=== PATIENT | male | born 1940 | race Caucasian/White ===

== ENCOUNTER 2017-03-19 21:05 | Inpatient (IN) | payer MEDICARE, OTHER ==
[2017-03-19 22:19] LABS: #Lymphocytes 0.4 thou/uL (1.20-3.40); #Monocytes 0.8 thou/uL (0.11-0.59); #Neutrophils 10.5 thou/uL (1.40-6.50); %Eosinophils 0.4 % (0.0-10.0); %Monocytes 6.7 % (0.0-10.0); Hematocrit 41.1 % (42.0-52.0); Mean Platelet Volume 6.6 fL (7.4-10.4); Red Blood Cell (RBC) Count 4.69 mill/uL (4.70-6.10); White Blood Cell (WBC) Count 11.7 thou/uL (4.8-10.8)
[2017-03-19 22:26] LABS: PTT 32.4 SEC (22.9-36.1); Prothrombin Time 15.2 SEC (12.0-14.7)
[2017-03-19 22:35] LABS: ALT (SGPT) 218 U/L (8-55); AST (SGOT) 165 U/L (5-34); Alkaline Phosphatase 238 U/L (40-150); Anion Gap 11 mmol/L (10-20); BUN (Urea Nitrogen) 11 mg/dL (8.4-25.7); Bilirubin, Total 5.2 mg/dL (0.2-1.2); Calc. Creatinine Clearance 0 mL/min (70-130); Carbon Dioxide 26 mmol/L (23-31); Chloride 105 mmol/L (98-107); Estimated GFR-MDRD 73; Globulin 2.7 g/dL (2.4-3.5); Lipase 13 U/L (8-78); Protein, Total 6.2 g/dL (5.8-8.1)
--- NOTE | 2017-03-19 23:14 | ULT ---
RIGHT UPPER QUADRANT ULTRASOUND: History: 76-year-old male with right upper quadrant pain, elevated LFTs. Evidence for pancreatitis. FINDINGS: The gallbladder is contracted and has a very heterogeneous thickened irregular gallbladder wall. Poss ibilities include that of some severe chronic cholecystitis versus the possibility of neoplastic saravia ge. Common bile duct is 0.7 cm. There is some heterogeneous densities which appear to be along the wa ll of the gallbladder or within the gallbladder without definitive shadowing representing some polyp changes, soft tissue mass, or nonshadowing nonmobile gallstones. Pancreas is mostly obscured. The rig ht kidney appears unremarkable. IMPRESSION: Abnormal gallbladder with very markedly thickened irregular nodular gallbladder wall with possible no nshadowing gallstones versus some polypoid changes resulting in a very irregular nodular gallbladder lumen which is mostly contracted. Chronic cholecystitis versus gallbladder neoplastic change are cons iderations. 0.7 cm diameter common bile duct. POS: TIFFANIE
[2017-03-20] MEDS ORDERED: Lorazepam 2 MG/ML VIAL ONE (01:43)
[2017-03-20 02:13] LABS: Bilirubin Large (Negative); Blood, Urine Negative (Negative); Glucose, Urine (Dipstick) Negative (Negative); Ketone, Urine Negative (Negative); Nitrite Negative (Negative); Protein, Urine (Dipstick) Trace mg/dL (Neg-Trace)
[2017-03-20] MEDS: Piperacillin/Tazobactam 3.375 GM in Sodium Chloride 0.9% 100 ML IVPB SCH ×2 (03:15→04:20)
[2017-03-20] MEDS ORDERED: HYDROcodone/Acetaminophen 5/325 mg Tablet PO PRN ×2 (04:43)
[2017-03-20] MEDS ORDERED: Ondansetron HCl/PF 4 MG/2 ML Vial IVP PRN ×3 (04:43→16:32)
[2017-03-20] MEDS ORDERED: Ondansetron ODT 4 MG TAB SL PRN (04:43)
[2017-03-20] MEDS ORDERED: Lorazepam 2 MG/ML VIAL SLOW IVP PRN ×2 (04:43→06:30)
[2017-03-20] MEDS ORDERED: Acetaminophen 325 MG TAB PO PRN (04:43)
[2017-03-20] MEDS ORDERED: Multivitamins, Adult 10 ML, Thiamine HCl 100 MG, Folic Acid 1 MG in Dextrose 5 %-0.45 %... IV SCH ×4 (04:45)
[2017-03-20 05:27] VITALS: BMI 26.0
[2017-03-20] MEDS: THIAMINE HCL IV SCH ×4 (06:03)
[2017-03-20] MEDS: FOLIC ACID IV SCH ×4 (06:03)
[2017-03-20] MEDS: [UNRECOGNIZED DRUG - OTHER] IV SCH ×4 (06:03)
[2017-03-20] MEDS: MULTIVITAMINS IV SCH ×4 (06:03)
--- NOTE | 2017-03-20 06:40 | PDOC.EVN ---
Event Note - Event Note Event Note: [id number] h&p dictated 1. chronic cholecystitis 2. abdominal pain 3. HTN PLAN: SEE ORDERS
[2017-03-20] MEDS ORDERED: Ampicillin/Sulbactam 3 GM in Sodium Chloride 0.9% 100 ML IVPB SCH (09:00)
[2017-03-20] MEDS ORDERED: FLU VACC TS2017-18 (>65YR) 0.5 ML SYRINGE IM ONE (09:00)
[2017-03-20] MEDS ORDERED: Ondansetron HCl/PF 4 MG/2 ML Vial ONE (09:54)
[2017-03-20] MEDS ORDERED: Ketorolac Tromethamine 30 MG/ML VIAL ONE (09:54)
[2017-03-20] MEDS ORDERED: Propofol 200 MG/20 ML VIAL ONE (09:54)
[2017-03-20] MEDS ORDERED: Succinylcholine Chloride 20 MG/ML 10 ml SYRINGE FS ONE (09:54)
[2017-03-20] MEDS ORDERED: Lidocaine 1% PF 5 ML VIAL ONE (09:54)
[2017-03-20] MEDS: Ampicillin/Sulbactam 3 GM, Syringe 1.6 ML in Sterile Water 6.4 ML SLOW IVP SCH ×3 (09:57→21:58)
[2017-03-20] MEDS ORDERED: Midazolam HCl 2 mg/2 ml Vial ONE (10:52)
[2017-03-20] MEDS ORDERED: Fentanyl 100 MCG/2 ML VIAL ONE ×3 (10:52→15:59)
--- NOTE | 2017-03-20 11:28 | CON ---
DATE OF CONSULTATION: 03/20/2017 REQUESTING PHYSICIAN: Dr. Olivas. HISTORY OF PRESENT ILLNESS: This is a 76-year-old man who presented to [facility] in [facility] with insidious onset epigastric abdominal pain which started approximately 1800 hours foll owing a dinner consisting of baked potato, butter and cheese. Pain was associated with nausea, but n o emesis. The patient denies any fevers or chills. The pain did not radiate to his back. Workup there included a CT scan of the abdomen and pelvis which revealed an irregularly shaped thick walled gallbladder suspicious for neoplasm. The patient was transferred to [facility] in [place], [place]. He has been seen by Gastroenterology. Ultrasound of the abdomen was obtained which again con firms an irregularly shaped gallbladder with significant gallbladder wall thickening as well as non-s hadowing intraluminal structures, suspicious for stones versus polypoid lesions. At the time of my evaluation, the patient is awake and alert. His pain is controlled with analgesics . He denies any unexplained weight loss. He reports some fatigue over the last 1 year, but denies a ny early satiety or anorexia. PAST MEDICAL HISTORY: Pertinent for benign prostatic hypertrophy and coronary arterial disease. SURGICAL HISTORY: Pertinent for coronary arterial bypass 15 years ago. He has an inflatable penile prosthesis 1 year ago, this was revised on 09/2016. He specifically denies any previous abdominal lozano rgeries. SOCIAL HISTORY: He is a retired rancher. He denies any cigarette smoking, but admits to drinking 4- 5 beers per day and has done so for many years now. Over the last 6 months; however, the patient rep orts drinking much less. FAMILY HISTORY: Noncontributory for this patient's age. ALLERGIES: Patient denies any known drug allergies. REVIEW OF SYSTEMS: Ten point review of systems essentially unremarkable except for as stated in past medical history and chief complaint. PHYSICAL EXAMINATION: GENERAL: This reveals a 76-year-old normally developed man who is otherwise coherent and interactive and appears stated age. The patient is alert and oriented x3, appears to be in no significant acute distress at the time of my evaluation. VITAL SIGNS: Today includes blood pressure 125/70, pulse 75, respirations 16, temperature is 97.8 de grees Fahrenheit. Oxygen saturation is 94% on room air. HEENT: Reveals normocephalic and atraumatic. Pupils equal, round, and reactive to light and accommo dation. The patient has no scleral icterus present. HEART: Reveals regular rate and rhythm, no murmurs or gallops auscultated. LUNGS: Clear to auscultation bilaterally. His breathing is regular and unlabored. ABDOMEN: Soft with moderate epigastric tenderness to palpation. Liver and spleen are nonpalpable be low costal margins. EXTREMITIES: Reveals 2+ radial and pedal pulses bilaterally. No ankle edema is present. NEUROLOGIC: Reveals no focal deficits present. PERTINENT LABORATORY DATA: Today includes CBC with 11,700 white blood cells, hemoglobin 13.2, hemato crit is 41.1, platelet count is 175,000. Metabolic profile: Sodium 138, potassium is 4.0, chloride is 105, bicarbonate 26, BUN 11, creatinine is 0.99, glucose 120, total bilirubin is 5.2, AST and ALT elevated at 165 and 218 respectively. Alkaline phosphatase is also elevated at 238. Serum lipase is normal at 13. I have personally reviewed a CT scan of abdomen and pelvis which was o btained in [place] prior to this transfer, which reveals a contracted gallbladder with a markedl y gallbladder wall thickening with significant anatomic irregularity. I have also reviewed the abdom inal ultrasound which was obtained yesterday. This shows an abnormal irregularly shaped gallbladder with significant gallbladder wall thickening. There also some non-shadowing intraluminal densities w hich is suspicious for gallstones versus polyps. The common bile duct diameter is normal for this pa tient's age at 7 mm. IMPRESSION: 1. Epigastric abdominal pain, likely secondary to chronic cholecystitis with cholelithiasis versus g allbladder neoplasm. 2. History of coronary arterial disease. RECOMMENDATIONS: 1. A preoperative ERCP to better define the anatomy of the common bile duct and rule out common bile ductal obstruction given the abnormal liver function tests. 2. Laparoscopic cholecystectomy, possible open. Above findings and plan has been discussed with the patient who indicates understanding of the inform ation given. I have also advised the patient of the risks and benefits of the proposed surgery. The risks include, but not limited to bleeding, infection, injury to bile duct or surrounding structures . The patient indicates understanding of this information. I answered his questions. The patient h as given consent for this surgical intervention. Thank you again, Dr. Olivas for allowing me the opportunity to participate in the care of this pat ient.
--- NOTE | 2017-03-20 11:32 | HP ---
DATE OF ADMISSION: 03/20/2017 CHIEF COMPLAINT: Abdominal pain. HISTORY OF PRESENT ILLNESS: The patient is a 76 years old male with past medical history of hypertension, hyperlipidemia, coronary artery disease, initially went to the outside ER for epigastric pain. Patient complained of abdominal pain for the last 2 days. Pain persisted. So, he went to the outside ER. The patient had a CT abdomen done in the outside ER, so patient was transferred here. Upon ER arrival, the patient was initially oriented, but later on patient was confused, so patient was given Ativan and admitted to the floor. Patient is currently lethargic, because of Ativan, but denies any complaints at this time. PAST MEDICAL HISTORY: As per HPI. PAST SURGICAL HISTORY: CABG. Penile prosthesis. FAMILY HISTORY: Positive for lung CA. MEDICATIONS: Unavailable, as the patient is currently confused. SOCIAL HISTORY: Unavailable, but positive per chart or drinks alcohol every day , 4-5 beers. No drugs. REVIEW OF SYSTEMS: Unavailable from the patient, as the patient is currently lethargic. PHYSICAL EXAMINATION: CONSTITUTIONAL/VITAL SIGNS: At the time of H and P performed, temperature is 97.8, heart rate 75, respirations 16, blood pressure is 100/70, pulse ox 94%. GENERAL APPEARANCE: The patient is lethargic, but arousable. HEENT: Anterior nares patent. Nose normal. Oral cavity, tongue is moist. NECK: Supple, no JVD. CARDIOVASCULAR SYSTEM: S1, S2 present. No murmurs, no rubs, no gallops. RESPIRATORY SYSTEM: Diminished breath sounds bilaterally. No wheezing, no rhonchi. Breath sounds bilaterally. GASTROINTESTINAL: Abdomen is soft, no guarding, no organomegaly, no masses felt. MUSCULOSKELETAL: No edema. CRANIAL NERVE SYSTEM: Sleeping, but arousable, follows some commands. Speech clear. PSYCHIATRIC: Mood calm at this time. INTEGUMENTARY: No obvious rashes seen. LABORATORY DATA: At the time of H and P performed, white count 11.7, hemoglobin 13.2, platelet count is 175. PT 15.2, INR 1.2. BMP showed sodium 138, potassium 4, chloride 105, CO2 of 26, creatinine 0.99. AST 165, ALT 218, alkaline phosphatase 238, albumin is 3.5. IMAGING: CT abdomen and pelvis done in the outside showed chronic cholecystitis and gallbladder wall thickening, irregularity seen. ASSESSMENT AND PLAN: The patient is 76 years old male. 1. Chronic cholecystitis plus abdominal pain. Plan to consult General Surgery and Gastroenterology to evaluate the patient. Might need ERCP or MRCP also to evaluate the gallbladder wall. We will wait for their input. 2. Alcohol abuse. Plan to start patient on banana bag and thiamine and folic acid and p.r.n. Ativan. Monitor the patient closely. 3. History of hypertension. Continue home blood pressure medications. We will do p.r.n. hydralazine. 4. History of coronary artery disease. Hold aspirin at this time for possible biopsy. 5. History of hyperlipidemia. Continue home medications. The case was discussed in detail with the patient and also nurse. AKILA
[2017-03-20] MEDS ORDERED: Bupivacaine/Epinephrine 0.25% 30 ML VIAL ONE (13:50)
[2017-03-20] MEDS ORDERED: Iothalamate Meglumine 60% 50 ML VIAL FS ONE (13:51)
--- NOTE | 2017-03-20 14:24 | CON ---
DATE OF CONSULTATION: 03/20/2017 REFERRING DOCTOR: Dr. Derrick Pena, [facility] Hospitalist [facility]. REASON FOR CONSULTATION: Abdominal pain, abnormal sonogram and also abnormal liver function tests. HISTORY OF PRESENT ILLNESS: Mr. Steve Kolb is a very pleasant 76-year-old male hospitaliz ed because of abdominal pain and abnormal CAT scan of abdomen. The patient at present appears very c omfortable. He denies any abdominal pain. He says he had severe pain yesterday, but today he is act ually feeling better. He has no nausea today. He had a history of fever and chills yesterday, but n ow he is afebrile. The patient does see Dr. Anjel Rivas, his primary care doctor. He also sees Dr Kostas Snell, his assembly operator. The patient had no prior GI symptoms until about 2 days ago. The p ain started 2 days ago and the pain was over the epigastric area and periumbilical area. The pain wa s mild to begin with, but gotten severe yesterday and he has an episode of trench fever and chills. He also had an episode of diarrhea yesterday. The patient went to [place] [facility] and had abdominal CAT scan. The CAT scan done shows thickening of the gallbladder and possibly gallbladder mass and so me stones in the gallbladder. He came to the ER and had an abdominal sonogram, the caliber of sonogr am shows CBD at 7 mm, which is the upper limits of normal and does show the same findings that the CA T scan showed including thickening of the gallbladder wall and association of gallbladder mass. The patient has no prior history of abdominal pain. The patient has no prior history of liver disease. At the present time, liver function tests are elevated including bilirubin level. The patient had se en Dr. Hernandez, I believe 7-8 years ago, and had a colonoscopy done at that time. For some reason, he w as advised to have surgery on the colon. The patient did not have surgery and has seen an acupunctur ist. After explaining therapies, GI symptoms. He has not seen Dr. Hernandez over the last 7-8 years. Hi s bowel movements are regular. There is no hematochezia or any melena. He does complain of some ind igestion and heartburn off and on recently. No other relevant history. ALLERGIES: None. SOCIAL HISTORY: The patient does not smoke. He drinks alcohol 4-5 beers and mixed drinks at least 3 -4 times a week. MEDICAL ILLNESSES: 1. Coronary artery disease, status post coronary bypass graft. 2. Hyperlipidemia. No other relevant history. SURGERIES: 1. Status post coronary artery bypass graft. 2. Skin cancer removed and laminectomy over the neck. He also had skin cancer removed over the nose recently about a month ago and he has a bandage over the nose. FAMILY HISTORY: Mother and sister had lung cancer and both were heavy smokers. MEDICATIONS: Include, 1. Atorvastatin 10 mg once a day. 2. Terazosin 5 mg once a day. 3. Omeprazole 40 once a day. 4. Aspirin 40 once a day. REVIEW OF SYSTEMS: Ten point systems review, CONSTITUTIONAL: No history of any weight loss. He has good appetite. He was functioning normally. He has had no loss of weight. COAGULATOR: No history of TIA, no chronic headache, no syncope, no seizure disorder. RESPIRATORY: No history of chronic cough, hemoptysis, or dyspnea. CARDIOVASCULAR: No chest pain, no palpitation, no exertional dyspnea, orthopnea or PND. GASTROINTESTINAL: As in history of present illness. GENITOURINARY: History of nocturia and also frequent urination. MUSCULOSKELETAL: Unremarkable. ENDOCRINE: Unremarkable. NEUROPSYCHIATRIC: No depression or anxiety. PHYSICAL EXAMINATION: GENERAL: He appears very comfortable. He is a very pleasant elderly male, in no distress. HEENT: Conjunctivae are icteric. VITAL SIGNS: He is afebrile, temperature 97.8 degrees Fahrenheit, pulse is 75, blood pressure is 120 /70. NECK: Supple. No adenitis or thyromegaly noted. CARDIOVASCULAR: First and second heart sounds normal. LUNGS: Clear to auscultation. ABDOMEN: Soft and nondistended. Abdomen is really nontender over the right upper quadrant; however, slightly tender over the epigastric area and periumbilical area. Overall, the exam is very benign. There is no organomegaly or masses. Bowel sounds are normal. EXTREMITIES: Reveal no edema. CENTRAL NERVOUS SYSTEM: Grossly within normal limits. LABORATORY AND X-RAY FINDINGS: CBC shows WBC 11,700, hemoglobin 13.2, hematocrit 41.1, MCV 87.7, jeronimo telet count of 175,000, polymorphs 89, lymphocytes 3. His chemistry profile is abnormal with a bilir ubin of 5.2, AST 165, ALT 218, alkaline phosphatase 232. Serum electrolytes are normal. His BUN is 11, creatinine 0.99, albumin 3.5. His abdominal CAT scan shows thickening of gallbladder, possibly g allbladder mass and gallstones. The sonogram shows again the same findings and the CBD is actually n ormal caliber at 7 mm. CLINICAL IMPRESSION: Abdominal pain of recent onset with abnormal CAT scan findings. The patient fields s no prior history of liver disease. He is on atorvastatin, which could also account for some other . However, based on the history and physical, I believe he has biliary tract disease to account for the elevated LFTs. At the present time, the abdominal exam is very benign. RECOMMENDATIONS: 1. Analgesics as needed. 2. Surgical input for possible cholecystitis. If the patient has any bile duct abnormally cholangio gram, may consider ERCP. I will await surgical input before advising further course of therapy.
[2017-03-20] MEDS ORDERED: Promethazine HCl 25 MG/ML VIAL SLOW IVP PRN ×2 (16:11→16:32)
[2017-03-20] MEDS ORDERED: HYDROmorphone 2 MG/ML VIAL SLOW IVP PRN (16:11)
[2017-03-20] MEDS ORDERED: Promethazine HCl 25 MG/ML VIAL IM PRN ×2 (16:11→16:32)
[2017-03-20] MEDS ORDERED: traMADol HCl 50 MG TAB PO PRN ×2 (16:22)
[2017-03-20] MEDS ORDERED: Meperidine HCl/PF 25 MG/ML VIAL ONE (16:31)
[2017-03-20] MEDS ORDERED: Meperidine HCl/PF 25 MG/ML VIAL SLOW IVP PRN (16:32)
--- NOTE | 2017-03-20 16:49 | PDOC.PN ---
- Subjective Encounter Start Date: 03/20/17 Encounter Start Time: 16:47 Subjective: sedated , post op - Objective MAR Reviewed: Yes Vital Signs & Weight: Vital Signs (12 hours) Temp Pulse Resp BP Pulse Ox 03/20/17 08:00 98.0 F 75 20 142/79 H 93 L Weight Weight 192 lb Result Diagrams: 03/19/17 22:03 03/19/17 22:02 Phys Exam - Physical Examination Neck: no JVD Respiratory: clear to auscultation bilateral Cardiovascular: RRR, no significant murmur Gastrointestinal: soft, positive bowel sounds Musculoskeletal: no edema Dx/Plan (1) Cholecystitis Code(s): K81.9 - CHOLECYSTITIS, UNSPECIFIED Status: Acute (2) CAD (coronary artery disease) Code(s): I25.10 - ATHSCL HEART DISEASE OF [place] CORONARY ARTERY W/O ANG PCTRS Status: Acute Qualifiers: Coronary Disease-Associated Artery/Lesion type: [place] artery [place] vs. transplanted heart: [place] heart Associated angina: without angina Qualified Code(s): I25.10 - Atherosclerotic heart disease of [place] coronary artery without angina pectoris (3) HTN (hypertension) Code(s): I10 - ESSENTIAL (PRIMARY) HYPERTENSION Status: Chronic Qualifiers: Hypertension type: essential hypertension Qualified Code(s): I10 - Essential (primary) hypertension (4) Dyslipidemia Code(s): E78.5 - HYPERLIPIDEMIA, UNSPECIFIED Status: Acute (5) ETOH abuse Code(s): F10.10 - ALCOHOL ABUSE, UNCOMPLICATED Status: Acute - Plan post op cachorro, will need ERCP -: banana bag daily -: selected home meds * .
--- NOTE | 2017-03-20 19:51 | OP ---
DATE OF OPERATION: 03/20/2017 PREOPERATIVE DIAGNOSIS: Chronic cholelithiasis versus gallbladder neoplasm. POSTOPERATIVE DIAGNOSIS: Acute and chronic cholecystitis with cholelithiasis. SURGERY PERFORMED: Attempted laparoscopic cholecystectomy converted to open cholecystectomy. Pathology with frozen sect ion. SURGEON: Chase Lofton D.O. ANESTHESIA: General endotracheal. ESTIMATED BLOOD LOSS: 200 mL. FLUIDS GIVEN: 1100 mL crystalloids. SPONGE AND INSTRUMENT COUNT: Certified as correct x2. COMPLICATIONS: None apparent at time of operation. INDICATIONS FOR OPERATION: A 76-year-old man presented with epigastric to right upper quadrant abdom inal pain. Clinical and radiographic examination was consistent with chronic cholecystitis with chol elithiasis and abnormal gallbladder suspicious for gallbladder neoplasm. Patient was brought to the operating room for laparoscopic cholecystectomy. Findings are consistent with a necrotic markedly th ick walled gallbladder in the usual anatomic location completely encased by omental adhesions. Froze n section is negative for neoplastic process. DESCRIPTION OF OPERATION: Informed consent obtained from the patient who was brought to the operatin g room and placed in supine position. Following general anesthesia, Alcantar catheter was inserted and placed a bedside drain. Abdomen is sterilely prepped and draped in the usual fashion. The skin belo w the umbilicus was infiltrated with 0.25% Marcaine with epinephrine. A small curvilinear infraumbil ical incision was made using an 11 scalpel. Umbilical stalk was grasped with Dejah and elevated. V eress needle was inserted through the incision and placed in the peritoneal cavity through which the abdomen was insufflated with 3 L of CO2 gas. Intra-abdominal pressure noted at 1 mmHg. Following ab dominal insufflation, Veress needle was removed and a 5 mm trocar introduced using a Visiport under l aparoscopy. Laparoscopy confirmed proper placement of the port, no injuries to underlying structures . Additional laparoscopy reveals gallbladder in the usual anatomic location completely encased by om ental adhesions. Under direct laparoscopy, a 12 mm epigastric and two 5 mm right lateral subcostal p orts were placed after the overlying skin was infiltrated with 0.25% Marcaine with epinephrine and ap propriate incisions made. The patient is placed in the reverse Trendelenburg position, rotated to hi s left. I introduced the [place] dissector with cautery, using this to take down omental adhesions to reveal the fundus of the gallbladder. I then introduced a Innovisige grasper through the right late ral subcostal port, attempted to grasp the fundus of the gallbladder which readily fell apart. A lar ge amount of purulent pus was evacuated from contracted gallbladder. Additional attempt was made to take down omental adhesions from the remainder of the gallbladder. This was quite tedious as there w as a significant amount of inflammation and fibrosis involving this markedly thick walled contracted gallbladder. Decision was made therefore to comfort as to open given previous suspicion of a neoplas tic process. At this juncture, the abdomen was desufflated. Ports were removed. Dejah incision wa s performed involving the right subcostal incisional port sites. This was achieved using a 10 scalpe l. Fascia was scored along the line of the incision using cautery. Muscles were divided in layers. The peritoneal cavity was then entered. Bookwalter retractor was put in place to gain exposure. Th e gallbladder was taken down in a retrograde fashion using cautery in a piecemeal fashion as attempts to grasp it with ring forcep was unachievable given the extensive necrosis of this thick walled gall bladder. We were unable to identify the cystic duct following underlying fiberoptic encased common b ile duct. To avoid injury to the common bile duct once the gallbladder was removed from the gallblad grady fossa. Further dissection was terminated. Note that the tissues from the gallbladder was sent f or frozen section and this was reported by pathology as acute inflammatory process, no evidence of ne oplasm. Gallbladder fossa was then inspected for hemostasis. Minor venous ooze was readily controll ed using a 1 x 2-inch piece of fibula. Given the report of a neoplastic process, a #19 Marcos drain w as introduced into the gallbladder fossa in the subhepatic space and allowed to exit the abdominal ca vity through a separate stab incision. The drain was secured to intraabdominal wall using 2-0 silk s uture. Fascia of the epigastric port site was closed using 0 Vicryl suture. Peritoneum was approxim ated along the line of the Dejah incision using a running stitch of 2-0 Vicryl. Fascia was then will sed in layers using a running stitch of #1 single stranded PDS. Subcutaneous tissue was irrigated wi th saline. Good hemostasis was noted in place. Skin incision was closed using elizabeth. The epigast koko and infraumbilical incision were closed using 4-0 Monocryl suture in subcuticular fashion. [place] harrell was applied there. Sterile dressing was applied over the Dejah incision. The patient tolerate d the operation without any apparent complication and was returned to recovery room in satisfactory c ondition.
[2017-03-20] MEDS: Sodium Chloride 0.9% 1,000 ML IV SCH ×2 (21:57)
[2017-03-20] MEDS: Acetaminophen 500 MG TAB PO SCH (21:59)
[2017-03-20] MEDS: Ketorolac Tromethamine 30 MG/ML VIAL IVP SCH (21:59)
[2017-03-20] MEDS: Tamsulosin HCl 0.4 MG CAP PO SCH (22:00)
[2017-03-21] MEDS: Ketorolac Tromethamine 30 MG/ML VIAL IVP SCH ×5 (00:47→22:42)
[2017-03-21] MEDS: Acetaminophen 500 MG TAB PO SCH ×5 (00:47→22:42)
[2017-03-21] MEDS: Ampicillin/Sulbactam 3 GM, Syringe 1.6 ML in Sterile Water 6.4 ML SLOW IVP SCH ×4 (03:44→22:44)
[2017-03-21] MEDS: MULTIVITAMINS IV SCH ×4 (06:16)
[2017-03-21] MEDS: FOLIC ACID IV SCH ×4 (06:16)
[2017-03-21] MEDS: [UNRECOGNIZED DRUG - OTHER] IV SCH ×4 (06:16)
[2017-03-21] MEDS: THIAMINE HCL IV SCH ×4 (06:16)
[2017-03-21 06:35] LABS: Band 6 % (5-11); Hematocrit 34.7 % (42.0-52.0); Mean Platelet Volume 7.4 fL (7.4-10.4); Neutrophil 79 % (42-75); Red Blood Cell (RBC) Count 3.96 mill/uL (4.70-6.10); White Blood Cell (WBC) Count 7.8 thou/uL (4.8-10.8)
[2017-03-21 06:37] LABS: ALT (SGPT) 103 U/L (8-55); AST (SGOT) 73 U/L (5-34); Alkaline Phosphatase 175 U/L (40-150); Anion Gap 9 mmol/L (10-20); BUN (Urea Nitrogen) 21 mg/dL (8.4-25.7); Bilirubin, Direct 3.3 mg/dL (0.1-0.3); Bilirubin, Total 4.3 mg/dL (0.2-1.2); Calc. Creatinine Clearance 64 mL/min (70-130); Calcium 8.2 mg/dL (7.8-10.44); Carbon Dioxide 26 mmol/L (23-31); Chloride 107 mmol/L (98-107); Estimated GFR-MDRD 60; Magnesium 1.7 mg/dL (1.6-2.6); Phosphorus 2.6 mg/dL (2.3-4.7); Protein, Total 4.8 g/dL (5.8-8.1)
--- NOTE | 2017-03-21 10:09 | PDOC.PN ---
- Subjective Encounter Start Date: 03/21/17 Encounter Start Time: 10:07 Subjective: mild incisional pain with motion - Objective MAR Reviewed: Yes Vital Signs & Weight: Vital Signs (12 hours) Temp Pulse Resp BP Pulse Ox 03/21/17 08:00 98.5 F 67 16 115/64 94 L 03/21/17 04:00 98.2 F 74 15 112/67 94 L 03/21/17 00:15 98.3 F 84 18 106/70 96 Weight Weight 192 lb I&O: 03/20/17 03/21/17 03/22/17 06:59 06:59 06:59 Output Total 190 Balance -190 Result Diagrams: 03/21/17 04:41 03/21/17 04:41 Phys Exam - Physical Examination Constitutional: NAD Neck: no JVD Respiratory: clear to auscultation bilateral Cardiovascular: RRR, no significant murmur Gastrointestinal: soft, non-tender, positive bowel sounds Musculoskeletal: no edema Dx/Plan (1) Cholecystitis Code(s): K81.9 - CHOLECYSTITIS, UNSPECIFIED Status: Acute (2) CAD (coronary artery disease) Code(s): I25.10 - ATHSCL HEART DISEASE OF [place] CORONARY ARTERY W/O ANG PCTRS Status: Acute Qualifiers: Coronary Disease-Associated Artery/Lesion type: [place] artery [place] vs. transplanted heart: [place] heart Associated angina: without angina Qualified Code(s): I25.10 - Atherosclerotic heart disease of [place] coronary artery without angina pectoris (3) HTN (hypertension) Code(s): I10 - ESSENTIAL (PRIMARY) HYPERTENSION Status: Chronic Qualifiers: Hypertension type: essential hypertension Qualified Code(s): I10 - Essential (primary) hypertension (4) Dyslipidemia Code(s): E78.5 - HYPERLIPIDEMIA, UNSPECIFIED Status: Acute (5) ETOH abuse Code(s): F10.10 - ALCOHOL ABUSE, UNCOMPLICATED Status: Acute - Plan doing well post op, LFTs still high but declining -: start home meds-lisinopril, lipitor, terrazosyn * .
[2017-03-21] MEDS: Sodium Chloride 0.9% 1,000 ML IV SCH ×2 (10:53→22:44)
--- NOTE | 2017-03-21 11:31 | PRG ---
DATE OF SERVICE: 03/21/2017 SUBJECTIVE: Mr. Kolb is awake and alert today. He is postoperative day #1, status post open cholecy stectomy. The patient reports adequate pain control. He denies any nausea or vomiting. He tolerate d his clear liquid diet. OBJECTIVE: VITAL SIGNS: Today includes blood pressure 115/64, pulse is 67, respiratory rate 16, temperature is 98.5 degrees Fahrenheit, oxygen saturation is 94% on room air. HEENT: Reveals normocephalic and atraumatic appearance. Pupils equal, round, and reactive to light and accommodation. HEART: Reveals regular rate and rhythm, no murmurs or gallops auscultated. CHEST: Clear to auscultation bilaterally. Breathing is regular and unlabored. ABDOMEN: Soft and nondistended. Incisions remain intact and clean. The patient has moderate incisi onal tenderness to palpation, no gross rebound tenderness present. Pedro-Morton drain returned some moderate amount of serosanguineous fluid, nonbilious. NEUROLOGIC: Reveals no focal deficits present. LABORATORY DATA: Includes CBC with 7800 white blood cells, hemoglobin 11.1, hematocrit is 34.7, plat elet count is 119,000. Metabolic profile: Sodium 138, potassium is 3.7, chloride is 107, bicarbonate 26, BUN 21, creatinine is 1.17, glucose 97, phosphorus is 2.6, magnesium is 1.7, AST and ALT are decreasing at 73 and 103 r espectively. Serum alkaline phosphatase is also decreasing at 175. The total bilirubin is decreasing at 4.3 in contrast to 5.2 yesterday. IMPRESSION: Postoperative day #1, status post open cholecystectomy. PLAN: 1. Increase activity. 2. Continue clear liquid diet until return of bowel function. Both findings and plan discussed with the patient who indicates understanding of the information give n. I did also discuss with Gastroenterology who will continue to monitor the patient for resumption of the LFTs and consider ERCP if indicated.
--- NOTE | 2017-03-21 11:49 | PRG ---
DATE OF SERVICE: 03/21/2017 GI INPATIENT DAILY PROGRESS NOTE SUBJECTIVE: Mr. Kolb says he is feeling really well today. Abdominal discomfort is minimal, much improved from yesterday. He has been afebrile. LFTs have trended down a bit since cholecystectomy yesterday. He is tolerating his liquid diet. OBJECTIVE: VITAL SIGNS: Temperature 98.5, pulse 67, blood pressure 115/64, 94% oxygen saturation on 2 liters nasal cannula. GENERAL: No acute distress, sitting up on the edge of the bed comfortably. HEART: Regular rate and rhythm. LUNGS: Clear to auscultation bilaterally. ABDOMEN: Bowel sounds hypoactive, but present, soft, mild generalized tenderness to palpation. No guarding or rebound tenderness. EXTREMITIES: No peripheral edema. LABORATORY STUDIES: WBC 7.8, hemoglobin 11.1, platelets 119. Sodium 138, potassium 3.7, BUN 21, creatinine 1.17, total bilirubin 4.3 down from 5.2 yesterday. Direct bilirubin is 3.3. AST is 73 down from 165 yesterday. ALT is 103 down from 218 yesterday. Alkaline phosphatase is 175 down from 238 yesterday, lipase on admission was 13. ASSESSMENT AND PLAN: 1. Acute cholecystitis, severe, now status post laparoscopic converted to open cholecystectomy yesterday on 03/20/2017. 2. Elevated liver function tests, some improvement since yesterday. I discussed the case with the patient and also with Dr. Lofton. Clinically, the patient is doing quite well and LFTs have declined a bit since surgery yesterday. His common bile duct was borderline in size upon admission. An intraoperative cholangiogram was unable to be performed. At this point, we will plan to trend the LFTs and anticipate continue to decline. If the LFTs bump back up, or if the patient becomes more symptomatic for some reason, then we could plan for ERCP if needed. No plan for ERCP at this time. Please call at any time with questions or concerns. AKILA
[2017-03-21] MEDS: Terazosin HCl 5 MG CAP PO SCH (15:20)
[2017-03-21] MEDS: Atorvastatin Calcium 40 MG TAB PO SCH (22:42)
[2017-03-21] MEDS: Tamsulosin HCl 0.4 MG CAP PO SCH (22:47)
[2017-03-22] MEDS: Ampicillin/Sulbactam 3 GM, Syringe 1.6 ML in Sterile Water 6.4 ML SLOW IVP SCH ×4 (03:30→21:40)
[2017-03-22] MEDS: Ketorolac Tromethamine 30 MG/ML VIAL IVP SCH ×4 (04:02→21:28)
[2017-03-22] MEDS: Acetaminophen 500 MG TAB PO SCH ×4 (04:02→21:27)
[2017-03-22] MEDS: Sodium Chloride 0.9% 1,000 ML IV SCH (04:03)
[2017-03-22 09:28] LABS: ALT (SGPT) 60 U/L (8-55); AST (SGOT) 51 U/L (5-34); Alkaline Phosphatase 147 U/L (40-150); Anion Gap 10 mmol/L (10-20); BUN (Urea Nitrogen) 29 mg/dL (8.4-25.7); Bilirubin, Total 3.6 mg/dL (0.2-1.2); Calc. Creatinine Clearance 61 mL/min (70-130); Carbon Dioxide 25 mmol/L (23-31); Chloride 104 mmol/L (98-107); Estimated GFR-MDRD 57; Protein, Total 4.4 g/dL (5.8-8.1)
[2017-03-22] MEDS: Lisinopril 20 MG TAB PO SCH (09:31)
--- NOTE | 2017-03-22 10:53 | PRG ---
DATE OF SERVICE: 03/22/2017 SUBJECTIVE: Mr. Kolb is a 76-year-old man who is 2 days status post open cholecystectomy. The patient reports adequate pain control. He is tolerating clear liquid diet and having normal urin digna function. Admits to passing flatus, but no bowel movement. OBJECTIVE: VITAL SIGNS: Today includes blood pressure 112/65, pulse is 74, respiratory rate 14, temperature 97. 4 degrees Fahrenheit, oxygen saturation is 93% on room air. HEENT: Reveals normocephalic and atraumatic. HEART: Reveals regular rate and rhythm, no murmurs or gallops auscultated. CHEST: Lungs are clear to auscultation bilaterally. Breathing is regular and unlabored. ABDOMEN: Soft, nondistended with mild incisional tenderness to palpation. He clearly has no gross r ebound tenderness present. Pedro-Morton drain today is producing large amount of bilious output. NEUROLOGIC: Reveals no focal deficits present. LABORATORY DATA: Today includes metabolic profile: Sodium 136, potassium is 3.4, chloride is 104, b icarbonate 25, BUN 29, creatinine is 1.23, glucose is 112. Total bilirubin today is decreasing at 3. 6 in contrast to 4.3 yesterday and 5.2 the day before. AST and ALT are also decreasing at 51 and 60 respectively. IMPRESSION: 1. Postoperative day #2 status post open cholecystectomy. 2. Large output bilious drainage per the Pedro-Morton drain likely secondary to a bile leak. PLAN: Discussed with Gastroenterology. The patient will likely need ERCP with stent if indicated. Above findings and plan discussed with the patient who indicates understanding of the information gibet[place] en. I answered his questions.
--- NOTE | 2017-03-22 11:55 | PDOC.PN ---
- Subjective Encounter Start Date: 03/22/17 Encounter Start Time: 11:53 Subjective: no fever, chills, etc - Objective MAR Reviewed: Yes Vital Signs & Weight: Vital Signs (12 hours) Temp Pulse Resp BP BP Pulse Ox 03/22/17 09:31 112/85 03/22/17 07:26 97.4 F L 74 14 112/65 93 L 03/22/17 04:00 97.9 F 71 16 109/66 96 Weight Weight 192 lb I&O: 03/21/17 03/22/17 03/23/17 06:59 06:59 06:59 Intake Total 3580 Output Total 530 Balance 3050 Result Diagrams: 03/21/17 04:41 03/22/17 08:44 Phys Exam - Physical Examination Neck: no JVD Respiratory: clear to auscultation bilateral Cardiovascular: RRR, no significant murmur Gastrointestinal: soft, no distention, positive bowel sounds Musculoskeletal: no edema Dx/Plan (1) Cholecystitis Code(s): K81.9 - CHOLECYSTITIS, UNSPECIFIED Status: Acute (2) CAD (coronary artery disease) Code(s): I25.10 - ATHSCL HEART DISEASE OF [place] CORONARY ARTERY W/O ANG PCTRS Status: Acute Qualifiers: Coronary Disease-Associated Artery/Lesion type: [place] artery [place] vs. transplanted heart: [place] heart Associated angina: without angina Qualified Code(s): I25.10 - Atherosclerotic heart disease of [place] coronary artery without angina pectoris (3) HTN (hypertension) Code(s): I10 - ESSENTIAL (PRIMARY) HYPERTENSION Status: Chronic Qualifiers: Hypertension type: essential hypertension Qualified Code(s): I10 - Essential (primary) hypertension (4) Dyslipidemia Code(s): E78.5 - HYPERLIPIDEMIA, UNSPECIFIED Status: Acute (5) ETOH abuse Code(s): F10.10 - ALCOHOL ABUSE, UNCOMPLICATED Status: Acute - Plan LFTs coming down slowly, significant drainage in GOPAL drain -: cont lipitor, lisinopril, flomax * .
[2017-03-22] MEDS: Polyethylene Glycol 3350 17 GM Packet PO SCH (13:38)
[2017-03-22] MEDS: Senokot S 8.6-50 MG TAB PO SCH ×2 (13:39→21:27)
[2017-03-22] MEDS ORDERED: Fentanyl 250 MCG/5 ML VIAL ONE (14:17)
[2017-03-22] MEDS ORDERED: Iothalamate Meglumine 60% 50 ML VIAL FS ONE (14:21)
[2017-03-22] MEDS ORDERED: PHENYLEPHRINE-NS 100 MCG/ML 10 ML SYRINGE ONE ×2 (16:02→16:13)
[2017-03-22] MEDS ORDERED: Succinylcholine Chloride 20 MG/ML 10 ml SYRINGE FS ONE (16:13)
[2017-03-22] MEDS ORDERED: ePHEDrine/0.9% NaCl/PF SYRINGE 50 mg/10 ml ONE (16:13)
[2017-03-22] MEDS ORDERED: Lidocaine 1% PF 5 ML VIAL ONE (16:13)
[2017-03-22] MEDS ORDERED: Propofol 200 MG/20 ML VIAL ONE (16:13)
[2017-03-22] MEDS ORDERED: Ondansetron HCl/PF 4 MG/2 ML Vial ONE (16:13)
[2017-03-22] MEDS ORDERED: Dexamethasone 20 MG/5 ML VIAL ONE (16:13)
--- NOTE | 2017-03-22 16:13 | RAD ---
ERCP INTRAOPERATIVE FLUOROSCOPY 03/22/17 HISTORY: Abdominal pain. Cholecystitis. FINDINGS/IMPRESSION: Intraoperative fluoroscopy is provided for ERCP procedure. Two spot fluoroscopic images show endoscop e to overlie the second portion of the duodenum with contrast opacification of a nondilated common du ct. The final image shows an opaque stent over the course of the common duct. POS: SHERI
[2017-03-22] MEDS ORDERED: Ondansetron HCl/PF 4 MG/2 ML Vial IVP PRN (16:20)
[2017-03-22] MEDS ORDERED: Morphine Sulfate 2 MG/ML SYRINGE SLOW IVP PRN (16:20)
[2017-03-22] MEDS ORDERED: Promethazine HCl 25 MG/ML VIAL IM PRN (16:20)
[2017-03-22] MEDS ORDERED: Promethazine HCl 25 MG/ML VIAL SLOW IVP PRN (16:20)
--- NOTE | 2017-03-22 20:00 | OP ---
DATE OF PROCEDURE: 03/22/2017 SURGEON: Edward Barrett M.D. S IRON WORKER SURGEON: None. PROCEDURE: Endoscopic retrograde cholangiopancreatography with biliary sphincterotomy, stone extract ion, and biliary stent placement. INDICATIONS: Suspected bile leak, postoperative day #2 status post laparoscopic converted to open ch olecystectomy. LFTs are declining, but persistently elevated, and GOPAL drain is putting out excessive fluid concerning for possible bile leak. MEDICATIONS: See anesthesia record. FINDINGS: After discussion of the risks, benefits and alternatives of the procedure, informed consen t was obtained and witnessed. Pre-endoscopic cardiopulmonary examination was satisfactory. Timeout was performed before sedation was achieved. Sedation was achieved with anesthesia assistance in the endoscopy unit. The patient was placed in a semi-prone position on the fluoroscopy table under gener al anesthesia, endotracheally intubated. A Pentax adult side-viewing duodenoscope was inserted into the oropharynx and passed beyond the esophagus and stomach and into the second portion of the duodenu m under indirect visualization. The ampulla was brought into view with the endoscope initially in th e long position. There was a large periampullary diverticulum. The ampulla itself appeared normal, but there was no spontaneous flow bile from the ampulla. Using a triple lumen dome-tip sphincterotom e and 0.035 wire, we were able to selectively cannulate the common bile duct. The guidewire was pass ed up into the left hepatic system. At this point, a cholangiogram was performed. This demonstrated a high grade bile leak from what appeared to be the cystic duct stump. Contrast agent was seen to f low freely from the cystic duct into the gallbladder fossa. The common bile duct was not dilated. T he intrahepatic ducts were not dilated. There was no evidence of biliary stricture. I was unable to perceive any filling defect within the common bile duct. At this point, the sphincterotome was with drawn to the level of the ampulla and a generous biliary sphincterotomy was performed. The sphincter otome was exchanged for an 8-12 mm extraction balloon. Multiple sweeps were made at the common bile duct with the balloon fully inflated. In this fashion, we were able to extract one single medium siz ed dark pigmented stone from the common bile duct. The balloon was then withdrawn and we elected to place a biliary stent across the ampulla. A 7 cm [place] dual flanged straight plastic stent was placed successfully into the common bile duct with the distal end and distal flange outside the ampu lla. This was accomplished without difficulty or complication. At this point, the working apparatus was completely withdrawn. The endoscope was completely withdrawn suctioning out excess air and flui d and the procedure was complete. Postprocedure fluoroscopic images demonstrated no retroperitoneal or subdiaphragmatic free air. The patient was then allowed to recover. The patient tolerated the pr ocedure well. There were no immediate post-procedure complications. IMPRESSION: 1. Choledocholithiasis, successful balloon extraction of a single dark pigmented stone from the comm on bile duct. 2. Bile leak from the cystic duct. 3. Successful biliary sphincterotomy, stone extraction, and placement of 7 cm [place] straight d ual flanged plastic stent in the common bile duct across the ampulla. 4. Periampullary diverticulum. RECOMMENDATIONS: 1. Clear liquid diet, then advance as tolerated. 2. Monitor for potential complications including post-ERCP pancreatitis. 3. We will plan to repeat ERCP in 6-8 weeks for stent removal.
[2017-03-22] MEDS: Atorvastatin Calcium 40 MG TAB PO SCH (21:27)
[2017-03-22] MEDS: Terazosin HCl 5 MG CAP PO SCH (21:27)
[2017-03-22] MEDS: Tamsulosin HCl 0.4 MG CAP PO SCH (21:28)
[2017-03-23] MEDS: Acetaminophen 500 MG TAB PO SCH ×2 (03:55→10:37)
[2017-03-23] MEDS: Ampicillin/Sulbactam 3 GM, Syringe 1.6 ML in Sterile Water 6.4 ML SLOW IVP SCH ×2 (03:55→10:37)
[2017-03-23] MEDS: Ketorolac Tromethamine 30 MG/ML VIAL IVP SCH ×2 (03:56→10:37)
[2017-03-23] MEDS: Lisinopril 20 MG TAB PO SCH (08:34)
[2017-03-23] MEDS: Polyethylene Glycol 3350 17 GM Packet PO SCH (08:34)
[2017-03-23] MEDS: Senokot S 8.6-50 MG TAB PO SCH (08:34)
[2017-03-23 09:48] LABS: ALT (SGPT) 52 U/L (8-55); AST (SGOT) 45 U/L (5-34); Alkaline Phosphatase 151 U/L (40-150); Anion Gap 12 mmol/L (10-20); BUN (Urea Nitrogen) 25 mg/dL (8.4-25.7); Bilirubin, Direct 2.2 mg/dL (0.1-0.3); Bilirubin, Total 2.7 mg/dL (0.2-1.2); Calc. Creatinine Clearance 58 mL/min (70-130); Calcium 8.7 mg/dL (7.8-10.44); Carbon Dioxide 27 mmol/L (23-31); Chloride 102 mmol/L (98-107); Estimated GFR-MDRD 53; Magnesium 1.8 mg/dL (1.6-2.6); Phosphorus 3.2 mg/dL (2.3-4.7); Protein, Total 5.4 g/dL (5.8-8.1)
--- NOTE | 2017-03-23 11:01 | PRG ---
DATE OF SERVICE: 03/23/2017 SUBJECTIVE: Mr. Kolb is postoperative day #3 status post open cholecystectomy. He reports adequate pain control. The patient is postoperative day #1 status post ERCP with extraction of common bile du ct stone and biliary stenting. He tolerates diet today, he denies any nausea or vomiting. He denies any fevers or chills. OBJECTIVE: VITAL SIGNS: Includes blood pressure 129/66, pulse 74, respiratory rate 16, maximum temperature in t he last 24 hours 98.4 degrees Fahrenheit, oxygen saturation 94% on room air. HEENT: Reveals pupils equal, round, reactive to light and accommodation. He has no sclerae icterus present. HEART: Reveals regular rate and rhythm, no murmurs or gallops auscultated. CHEST: Clear to auscultation bilaterally. Breathing is regular and unlabored. ABDOMEN: Soft and nondistended. Incisional scar remains intact, clean, and dry. Pedro-Morton aba in returns moderate amount of serous fluid, no bilious drainage present. NEUROLOGIC: Reveals no focal deficits present. LABORATORY DATA: Today includes metabolic profile: Sodium 137, potassium is 3.8, chloride is 102, b icarbonate 27, BUN 25, creatinine is 1.30, glucose 185. Magnesium 1.8, phosphorus 3.2. AST and ALT both decreasing at 45 and 52 respectively. Total bilirubin is also decreasing at 2.7. IMPRESSION: 1. Postoperative day #3 status post open cholecystectomy. 2. Postop day #1 status post endoscopic retrograde cholangiopancreatography with stenting. 3. Note that pathological report is consistent with acute on chronic cholecystitis with cholelithias is, no neoplastic process present. PLAN: The patient has remained hemodynamically stable and will be discharged home today with the shaan corral instructions: 1. He follows up with me in the Surgery Clinic in 1 week for staple removal. 2. The Pedro-Morton drain will be removed today. The patient is given a prescription for tramadol #30 to be taken 1-2 p.o. q.6 hours p.r.n. pain. 3. He may alternate this with Tylenol extra strength 1000 mg p.o. q.6 hours. 4. The patient is to call me with any questions or problems including exacerbation of abdominal pain , intolerance to oral intake or any fever in excess of 101 degrees Fahrenheit. He indicates understanding of information provided. I have answered his questions. The patient has expressed deep gratitude for the care rendered to him during this hospitalization and surgery.
--- NOTE | 2017-03-23 11:41 | DIS ---
DATE OF ADMISSION: 03/20/2017 DATE OF DISCHARGE: 03/23/2017 PRIMARY CARE PROVIDER: [facility] call admission for [facility]. FINAL DIAGNOSES: Cholecystitis, coronary artery disease, dyslipidemia, hypertension. DISCHARGE MEDICATIONS: Tramadol 50 mg 1-2 every 6 hours p.r.n. pain, Lipitor 80 mg a day, lisinopril 20 mg a day, terazosin 5 mg a day. ALLERGIES: No known drug allergies. PENDING AT TIME OF DISCHARGE: Nothing. CODE STATUS: FULL. HOSPITAL COURSE: Patient admitted to [facility] Hospitalist Service through [facility] The patient complained of abdominal pain. CT of the abdomen showed chronic cholecystitis and gallbladder wall thickening. Alkaline phosphatase 238, AST 165, ALT 218. White count was 11.7. Tad irubin was 5.2. Dr. Chase Lofton was consulted. On 03/20/2017, the patient was taken to the operat ing room, diagnosis of acute on chronic cholecystitis with cholelithiasis, attempted laparoscopic cho lecystectomy was changed to open, a drain was left in. The patient has been followed by Zeinab and Dr Kostas Lofton. Dr. Lofton saw him today and recommended discharge. The patient had an ERCP by Dr. Edward Champagne se 03/22/2017 with a successful balloon extraction of single dark pigmented stone from the common tad e duct. The patient is being discharged for followup with Dr. Lofton per his instructions. Prescript ions written by Dr. Lofton. CONSULTATIONS: Dr. Chase Lofton and Dr. Edward Barrett. Procedures, previously mentioned. Followup laboratory, bilirubin, over the last 4 days, has been 5.2 , 4.3, 3.6, 2.7; AST 165, 73, 51, 45; ALT 238, 175, 147, 151. The patient's white cell count came do wn to normal. He is doing well. Vital signs are stable. Abdomen is benign.
[2017-03-23] MEDS ORDERED: Bisacodyl 5 MG TAB PO SCH (12:00)
[2017-03-23 12:34] VITALS: BP 141/76; TEMP 97.9
[2017-03-24] MEDS ORDERED: Bisacodyl 5 MG TAB PO SCH (09:00)
== END 2017-03-23 13:45 | disposition home or self-care (01) | DRG 415 ==
LOC: ERS 21:05 → T4-B 03-20 01:50 → SURG A 03-20 17:28
PROVIDERS: ADMIT Internal Medicine; ATTEND Internal Medicine
PROC: 0FT40ZZ Resection of Gallbladder, Open Approach (ICD-10-PCS; 2017-03-20)
PROC: 0FJ44ZZ Inspection of Gallbladder, Percutaneous Endoscopic Approach (ICD-10-PCS; 2017-03-20)
PROC: 0DNU4ZZ Release Omentum, Percutaneous Endoscopic Approach (ICD-10-PCS; 2017-03-20)
PROC: 0FC98ZZ Extirpation of Matter from Common Bile Duct, Via Natural or Artificial Opening Endoscopic (ICD-10-PCS; principal; 2017-03-22)
PROC: 0F798DZ Dilation of Common Bile Duct with Intraluminal Device, Via Natural or Artificial Opening Endoscopic (ICD-10-PCS; 2017-03-22)
DX: K80.66 Calculus of gallbladder and bile duct with acute and chronic cholecystitis without obstruction (principal); F10.230 Alcohol dependence with withdrawal, uncomplicated; E78.5 Hyperlipidemia, unspecified; I25.10 Atherosclerotic heart disease of native coronary artery without angina pectoris; I10 Essential (primary) hypertension; Z95.1 Presence of aortocoronary bypass graft; I25.2 Old myocardial infarction; Z85.828 Personal history of other malignant neoplasm of skin
CPT/HCPCS: 36415; 74330; 76705; 80048; 80076; 81003; 83690; 83735; 84100; 85007; 85027; 88304; 88331; 88342; 93005; 96361; 96374; A4216; J0295; J1100; J1885; J2001; J2060; J2175; J2250; J2405; J2543; J2704; J3010; J3411; J7042; J7050; Q9961

== ENCOUNTER 2017-05-18 13:17 | Day surgery (SDC) | payer MEDICARE, OTHER ==
[2017-05-17 14:57] VITALS: BMI 25.7
[2017-05-18] MEDS ORDERED: Fentanyl 100 MCG/2 ML VIAL ONE (13:37)
[2017-05-18] MEDS ORDERED: CEFAZOLIN/Water 2 GM/20 ML SYRINGE ONE (13:43)
[2017-05-18] MEDS ORDERED: Iothalamate Meglumine 60% 50 ML VIAL FS ONE (14:16)
--- NOTE | 2017-05-18 15:58 | RAD ---
ERCP: Date: 05/18/17 PROVIDED CLINICAL HISTORY: Abdominal pain. FINDINGS: Comparison made with study dated 03/22/17. The previously seen common duct stent is no longer apparent. The common duct appears somewhat conspic uous in size. There is no evidence for intrahepatic biliary ductal dilatation. There is no evidence f or a biliary filling defect. IMPRESSION: As above. POS: TIFFANIE
--- NOTE | 2017-05-18 16:08 | OP ---
DATE OF PROCEDURE: 05/18/2017 PROCEDURE: Endoscopic retrograde cholangiopancreatography with stent removal. PHYSICIAN: Albaro Hernandez M.D. MEDICATIONS: Given by Anesthesiology Department. PREPROCEDURE DIAGNOSIS: History of bile leak, status post stent placement. POSTOPERATIVE DIAGNOSES: 1. Stent removal. 2. Normal occlusive cholangiogram. PROCEDURE IN DETAIL: Written consent was obtained prior to procedure. After adequate sedation, side -viewing endoscope was advanced down the stomach through the pylorus into duodenum. The previously p laced stent was seen. A snare was then used to remove the stent along with the scope. Repeat endosc opy was performed. Periampullary diverticula noted. Cannulation of the bile duct was made using a 9 mm balloon. Occlusive cholangiogram was then performed and was free of filling defect. There was n o further leak. The catheter and the instrument were then fully removed. The patient tolerated proc edure well. ASSESSMENT: 1. Status post removal of biliary stent. 2. Normal cholangiogram RECOMMENDATIONS: Resume activity and diet after discharge.
[2017-05-18] MEDS ORDERED: PROPOFOL 200 MG/20 ML VIAL ONE (16:50)
[2017-05-18] MEDS ORDERED: Lidocaine 1% PF 5 ML VIAL ONE (16:50)
[2017-05-18] MEDS ORDERED: Glycopyrrolate 0.2 MG/ML 5 ML SYRINGE ONE (16:50)
[2017-05-18] MEDS ORDERED: Dexamethasone 20 MG/5 ML VIAL ONE (16:50)
[2017-05-18] MEDS ORDERED: Ondansetron HCl/PF 4 MG/2 ML Vial ONE (16:50)
== END 2017-05-18 16:40 | disposition home or self-care (01) ==
LOC: SDC 13:17
PROVIDERS: ATTEND Internal Medicine Gastroenterology
PROC: 0FPB8DZ Removal of Intraluminal Device from Hepatobiliary Duct, Via Natural or Artificial Opening Endoscopic (ICD-10-PCS; principal; 2017-05-18)
DX: Z45.89 Encounter for adjustment and management of other implanted devices (principal); K21.9 Gastro-esophageal reflux disease without esophagitis; I10 Essential (primary) hypertension; I25.10 Atherosclerotic heart disease of native coronary artery without angina pectoris; I25.2 Old myocardial infarction; E78.00 Pure hypercholesterolemia, unspecified; K59.00 Constipation, unspecified; Z79.899 Other long term (current) drug therapy; Z88.8 Allergy status to other drugs, medicaments and biological substances; Z98.49 Cataract extraction status, unspecified eye; Z95.1 Presence of aortocoronary bypass graft; Z90.49 Acquired absence of other specified parts of digestive tract; Z98.890 Other specified postprocedural states
CPT/HCPCS: 74330; J1100; J2001; J2405; J2704; J3010; Q9961

== ENCOUNTER 2019-04-17 12:01 | Inpatient (IN) | payer MEDICARE, OTHER ==
[2019-04-17] MEDS ORDERED: Ketorolac Tromethamine 30 MG/ML VIAL IVP PRN (12:34)
[2019-04-17] MEDS ORDERED: Morphine 4 MG/ML VIAL SLOW IVP PRN (12:34)
[2019-04-17] MEDS ORDERED: HYDROcodone/Acetaminophen 5/325 mg Tablet PO PRN (12:34)
[2019-04-17] MEDS ORDERED: Zolpidem Tartrate 5 MG TAB PO PRN (12:34)
[2019-04-17] MEDS ORDERED: diphenhydrAMINE 50 MG/ML VIAL IVP PRN (12:34)
[2019-04-17] MEDS ORDERED: Ondansetron PF 4 MG/2 ML Vial IVP PRN (12:34)
[2019-04-17 12:36] VITALS: BMI 25.0
[2019-04-17 13:07] LABS: #Eosinphils 0.3 thou/uL (0.0-0.7); #Lymphocytes 0.8 thou/uL (1.20-3.40); #Monocytes 0.5 thou/uL (0.11-0.59); #Neutrophils 6.7 thou/uL (1.40-6.50); %Basophils 0.6 % (0.0-1.0); %Eosinophils 3.5 % (0.0-10.0); %Lymphocytes 9.2 % (21.0-51.0); %Monocytes 6.1 % (0.0-10.0); %Neutrophils 80.5 % (42.0-75.0); Mean Corpuscular HGB CONC 30.8 g/dL (32.0-36.0); Mean Corpuscular Hemoglobin 25.2 pg (27.0-31.0); Mean Corpuscular Volume 81.9 fL (78.0-98.0); Mean Platelet Volume 6.8 fL (7.4-10.4); Platelet Count 237 thou/uL (130-400); RBC Distribution Width 16.1 % (11.5-14.5); Red Blood Cell (RBC) Count 5.16 mill/uL (4.70-6.10); White Blood Cell (WBC) Count 8.3 thou/uL (4.8-10.8)
[2019-04-17 13:36] LABS: Anion Gap 13 mmol/L (10-20); BUN (Urea Nitrogen) 15 mg/dL (8.4-25.7); Calc. Creatinine Clearance 48 mL/min (70-130); Calcium 9.1 mg/dL (7.8-10.44); Carbon Dioxide 26 mmol/L (23-31); Chloride 105 mmol/L (98-107); Estimated GFR-MDRD 47; Glucose 93 mg/dL (83-110); Potassium 4.8 mmol/L (3.5-5.1); Sodium 139 mmol/L (136-145)
[2019-04-17 13:51] LABS: PTT 31.3 SEC (22.9-36.1); Prothrombin Time 13.5 SEC (12.0-14.7)
[2019-04-17] MEDS: Sodium Chloride 0.9% 1,000 ML IV SCH (14:02)
[2019-04-17] MEDS: CEFAZOLIN 2 GM in Premix Bag 1 BAG IVPB SCH ×2 (14:02→21:30)
--- NOTE | 2019-04-17 14:10 | HP ---
CHIEF COMPLAINT: Scrotal pain and drainage. HISTORY OF PRESENT ILLNESS: This is an 78-year-old male with a history of erectile dysfunction that he has been attempting to manage with inflatable penile prosthesis for the past few years. He had his first prosthesis placed in [place]. However, this failed when he first tried to inflate it. He then had this replaced. However, after the replacement in [place], he had difficulty voiding and noted that the end of one of the cylinders was curled back on itself. He then came to see me for lower urinary tract symptoms and underwent a transurethral resection of the prostate after which he has been able to void much better. He did feel that the buckled cylinder continued to cause difficulty with voiding, to some point that it caused a spraying of his urinary stream and it made it so that he could not utilize the implants. We removed and replaced his implant on December 05 of this year. Over the past several weeks, he has been developing mild pain with pumping the device. We attempted to manage this with oral antibiotics given the lack of any obvious or overt signs of infection. However, recently this has worsened to the point that he had developed an area of swelling where the pump of the device seemed to be affixed to the scrotal wall. He was seen recently and we decided to schedule a salvage procedure with removal and replacement of the prosthesis on April 30. Unfortunately, this morning, he developed drainage from the underside of his scrotum, where the pump has been fixed and contacted my office, at which point, I arranged for him to be directly admitted to the hospital. In speaking with him in his hospital room, he tells me that after the wound drained for a couple of hours he feels much improved. He is only having very minimal discomfort at this point. He denies fevers, nausea, vomiting, abdominal pain, dysuria, or hematuria. PAST MEDICAL HISTORY: Hypertension, hyperlipidemia, and enlarged prostate. PAST SURGICAL HISTORY: Cholecystectomy; inflatable penile prosthesis placement, replacement, repeat replacement as described above; and transurethral resection of prostate. FAMILY HISTORY: Reviewed and noncontributory. SOCIAL HISTORY: Nonsmoker. No substance abuse. MEDICATIONS: Reviewed including; 1. Terazosin. 2. Omeprazole. 3. Cholecalciferol. 4. Atorvastatin. 5. Aspirin 81 mg. REVIEW OF SYSTEMS: Ten-point review of systems performed, negative except as mentioned in my HPI. PHYSICAL EXAMINATION: VITAL SIGNS: Afebrile, vitals stable. GENERAL: No acute distress, conversant. LUNGS: Unlabored breathing, symmetric chest expansion. HEART: Regular rate and rhythm. ABDOMEN: Soft, nontender, and nondistended. No flank tenderness. No suprapubic tenderness. GENITOURINARY: Implant; penile implant is in good position with mild induration over the inferior portion of the pump, which was affixed to the dependent scrotal wall, no active drainage at this point, no surrounding erythema or crepitus. SKIN: Warm and dry. EXTREMITIES: Without clubbing or cyanosis. NEUROLOGIC: Alert and oriented x3. PSYCHIATRIC: Normal mood and affect. LABORATORY DATA: Shows white count of 8.3 with a left shift. BMP not yet returned. ASSESSMENT AND PLAN: Infected penile prosthesis - subacute. The patient and I have discussed this previously, but we again reviewed what this condition means and I advised at this point that due to the active drainage, I do not think that a salvage procedure would be dominguez. I offered him two options - to either remove the inflatable penile prosthesis and begin him on a regimen of vacuum device and stretching to maintain length with consideration of replacement in 3 months or to remove the inflatable prosthesis and place malleable rods as long as the cylinders do not appear to be infected. He does not want a malleable prosthesis and so this Monday, we will proceed to the operating room for removal of penile prosthesis and washout. He will be on broad-spectrum antibiotics until that time. We did go over the risks of the procedure including bleeding, further infection, pain, loss of penile length, urethral injury, scrotal or testicular injury. The patient expressed understanding of the situation and its options and agrees with this plan. Job ID: [id number]
[2019-04-17] MEDS: Gentamicin Sulfate 400 MG in Sodium Chloride 0.9% 100 ML IVPB SCH (15:13)
[2019-04-17 19:14] LABS: Bacteria/HPF None Seen HPF (None Seen); Bilirubin Negative (Negative); Blood, Urine Negative (Negative); Clarity Clear (Clear); Glucose, Urine (Dipstick) Normal (Negative); Leukocyte Negative Leu/uL (Negative); Nitrite Negative (Negative); Protein, Urine (Dipstick) Negative (Neg-Trace); RBC/HPF 0-3 HPF (0-3); Squamous Epithelial 0-3 HPF (0-3); Urobilinogen Normal mg/dL (Less than 2); WBC/HPF 0-3 HPF (0-3)
[2019-04-17] MEDS: Terazosin HCl 5 MG CAP PO SCH (21:30)
[2019-04-17] MEDS: Atorvastatin Calcium 40 MG TAB PO SCH (21:30)
[2019-04-17] MEDS: Docusate 100 MG CAP PO SCH (21:30)
[2019-04-18] MEDS: Sodium Chloride 0.9% 1,000 ML IV SCH ×2 (00:57→10:52)
[2019-04-18] MEDS: CEFAZOLIN 2 GM in Premix Bag 1 BAG IVPB SCH ×3 (05:12→21:44)
[2019-04-18 05:59] LABS: #Eosinphils 0.5 thou/uL (0.0-0.7); #Monocytes 0.5 thou/uL (0.11-0.59); %Basophils 0.5 % (0.0-1.0); %Eosinophils 6.4 % (0.0-10.0); %Lymphocytes 14.4 % (21.0-51.0); %Monocytes 7.3 % (0.0-10.0); %Neutrophils 71.3 % (42.0-75.0); Hemoglobin 11.1 g/dL (14.0-18.0); Mean Corpuscular HGB CONC 30.9 g/dL (32.0-36.0); Mean Corpuscular Hemoglobin 24.8 pg (27.0-31.0); Mean Corpuscular Volume 80.3 fL (78.0-98.0); Mean Platelet Volume 7.2 fL (7.4-10.4); Platelet Count 203 thou/uL (130-400); RBC Distribution Width 15.9 % (11.5-14.5); Red Blood Cell (RBC) Count 4.49 mill/uL (4.70-6.10); White Blood Cell (WBC) Count 7.1 thou/uL (4.8-10.8)
[2019-04-18 06:17] LABS: Anion Gap 11 mmol/L (10-20); BUN (Urea Nitrogen) 12 mg/dL (8.4-25.7); Calc. Creatinine Clearance 58 mL/min (70-130); Calcium 8.2 mg/dL (7.8-10.44); Carbon Dioxide 24 mmol/L (23-31); Chloride 108 mmol/L (98-107); Estimated GFR-MDRD 58; Glucose 87 mg/dL (83-110); Potassium 4.5 mmol/L (3.5-5.1); Sodium 138 mmol/L (136-145)
[2019-04-18] MEDS: Docusate 100 MG CAP PO SCH ×2 (08:23→20:15)
[2019-04-18] MEDS: Enoxaparin Sodium 40 MG/0.4 ML SYRINGE SC SCH (08:23)
[2019-04-18] MEDS: Gentamicin Sulfate 400 MG in Sodium Chloride 0.9% 100 ML IVPB SCH (14:59)
[2019-04-18] MEDS: Atorvastatin Calcium 40 MG TAB PO SCH (20:15)
[2019-04-18] MEDS: Terazosin HCl 5 MG CAP PO SCH (20:15)
[2019-04-19] MEDS: Sodium Chloride 0.9% 1,000 ML IV SCH ×3 (00:13→20:58)
[2019-04-19] MEDS: CEFAZOLIN 2 GM in Premix Bag 1 BAG IVPB SCH ×3 (05:44→20:58)
[2019-04-19] MEDS: Docusate 100 MG CAP PO SCH ×2 (07:44→21:00)
[2019-04-19] MEDS: Enoxaparin Sodium 40 MG/0.4 ML SYRINGE SC SCH (07:44)
--- NOTE | 2019-04-19 08:25 | PRG ---
DATE OF SERVICE: 04/18/2019 SUBJECTIVE: No changes overnight. The patient reports that his pain is much improved, rating only about a 3/10 currently. He has not had any fevers, nausea, suprapubic pain, dysuria, or hematuria. He reports little to no drainage overnight. REVIEW OF SYSTEMS: Ten-point review of systems are negative, except as mentioned in my HPI. OBJECTIVE: VITAL SIGNS: Afebrile, vital signs stable. Good urine output. GENERAL: No acute distress, conversant. Alert and oriented x3. LUNGS: Unlabored breathing. Symmetric chest expansion. HEART: Regular rate and rhythm. ABDOMEN: Soft, nontender, nondistended. No flank tenderness. No suprapubic tenderness. : Reveals the implant in good position with the pump fixed on the posterior aspect of the scrotum with no active drainage. No change in exam since yesterday. No crepitus or spreading erythema. SKIN: Warm and dry. PSYCHIATRIC: Normal mood and affect. LABORATORY DATA: White blood cell count is 7.1, left shift has improved. Creatinine stable. ASSESSMENT AND PLAN: 1. Hospital day 2, infected penile prosthesis. Continue Ancef and gentamicin for broad-spectrum coverage. SCDs in place, incentive spirometry at the patient's bedside. 2. Hypertension. Continue on home trazodone. 3. Hyperlipidemia. Continue atorvastatin. The patient and I again discussed the planned operation for tomorrow of removing the prosthesis. I explained this in detail once again going over the risks of bleeding, hematoma, infection, pain, urethral injury, corporal scarring or fibrosis leading to loss of penile length. He does understand that the prosthesis will not be replaced and that if we decide to do so. This will be staged in about 3 months. Job ID: [id number]
[2019-04-19] MEDS ORDERED: Lidocaine 1% PF 5 ML VIAL ONE (09:27)
[2019-04-19] MEDS ORDERED: Ondansetron PF 4 MG/2 ML Vial ONE (09:27)
[2019-04-19] MEDS ORDERED: PROPOFOL 200 MG/20 ML VIAL ONE (09:27)
[2019-04-19] MEDS ORDERED: PHENYLEPHRINE-NS 100 MCG/ML 10 ML SYRINGE ONE (09:27)
[2019-04-19] MEDS ORDERED: ePHEDrine/0.9% NaCl/PF SYRINGE 50 mg/10 ml ONE (09:27)
[2019-04-19] MEDS ORDERED: Fentanyl 100 MCG/2 ML VIAL ONE ×3 (12:34→15:20)
[2019-04-19] MEDS ORDERED: Sodium Chloride 0.9% 10 ML ONE (13:18)
[2019-04-19] MEDS ORDERED: Promethazine HCl 25 MG/ML VIAL IM PRN (14:29)
[2019-04-19] MEDS ORDERED: Promethazine HCl 25 MG/ML VIAL SLOW IVP PRN (14:29)
[2019-04-19] MEDS ORDERED: Ondansetron HCl/PF 4 MG/2 ML Vial IVP PRN (14:29)
[2019-04-19] MEDS: Gentamicin Sulfate 400 MG in Sodium Chloride 0.9% 100 ML IVPB SCH (16:17)
--- NOTE | 2019-04-19 18:03 | OP ---
DATE OF PROCEDURE: 04/19/2019 PREOPERATIVE DIAGNOSIS: Infected penile prosthesis. POSTOPERATIVE DIAGNOSES: Infected penile prosthesis, fossa navicularis stricture. PROCEDURES PERFORMED: Removal of infected penile prosthesis, dilation of fossa navicularis stricture, and cystourethroscopy. ANESTHESIA: General. COMPLICATIONS: None. BLOOD LOSS: 30 mL. SPECIMENS: Penile prosthesis, wound culture. DESCRIPTION OF PROCEDURE: After informed consent, the patient was taken to the operating room, transferred to the table on his own power. Anesthesia was established. Time-out was performed showing correct patient, site, and procedure. We assured that he had been receiving scheduled antibiotics. He was prepped and draped in the supine position. I began by attempting to pass the flexible cystoscope, however, noted that he had developed a fossa navicularis stricture. This was gently dilated until I was able to pass the cystoscope. There were no further urethral strictures. The prostate was then entered noting some regrowth adenoma, but the patient still has an excellent channel. The bladder was entered and systematically examined noting no mucosal abnormalities. The scope was then withdrawn slowly noting no evidence of erosion of the penile prosthesis in the distal urethra. I then placed a 16-Albanian Alcantar catheter with 10 mL instilled in the balloon draining clear urine. The Trauma Pouch was deployed. I made a transverse scrotal incision through his previous scar. This was carried down until tubing was encountered. The [place] was deployed. The tubing was tracked down to the pump, which was delivered into the operative field noting purulent drainage. This was cultured The pump was used to then track down onto the patient's right cylinder. This was delivered into the operative field, and stay sutures were placed. The left cylinder was then removed placing sutures there as well. Finally, the tubing to the reservoir was located and tracked into the left space of Retzius. It was emptied of its fluid and delivered into the operative field. A red rubber catheter was placed into the space of Retzius. I then irrigated the wound serially using half-strength Betadine, half-strength peroxide, vancomycin irrigation, normal saline. This was done 2 times through. I then removed the red rubber catheter and placed a drain into the space of Retzius. The drain came out to the dependent portion of the scrotum, where the skin had given way and eroded causing a 1 cm opening at that point. I closed in 3 layers using Vicryl suture after closing the corporotomies with the previously placed stay sutures. Skin was then closed with interrupted chromic sutures. The wound was dressed with gauze and tape. The patient was then awoken from anesthesia, transferred back to his hospital bed, and taken to PACU in stable condition, where he will return to the floor upon recovery. Job ID: [id number]
[2019-04-19] MEDS ORDERED: Aspirin 81 mg Enteric Coated Tablet PO SCH (21:00)
[2019-04-19] MEDS ORDERED: Non-Formulary Item 1 EACH (Atorvastatin Calcium [Atorvastatin Calcium] 80 MG) PO SCH (21:00)
[2019-04-19] MEDS: Terazosin HCl 5 MG CAP PO SCH (21:00)
[2019-04-19] MEDS ORDERED: Terazosin HCl 5 MG CAP PO SCH (21:00)
[2019-04-19] MEDS: Atorvastatin Calcium 40 MG TAB PO SCH (21:00)
[2019-04-20] MEDS: CEFAZOLIN 2 GM in Premix Bag 1 BAG IVPB SCH (05:33)
[2019-04-20] MEDS: Sodium Chloride 0.9% 1,000 ML IV SCH (05:33)
[2019-04-20] MEDS: Docusate 100 MG CAP PO SCH (08:12)
[2019-04-20] MEDS: Enoxaparin Sodium 40 MG/0.4 ML SYRINGE SC SCH (08:13)
[2019-04-20 08:24] VITALS: BP 144/72; TEMP 98.9
--- NOTE | 2019-04-20 14:00 | DIS ---
DATE OF ADMISSION: 04/17/2019 DATE OF DISCHARGE: 04/20/2019 ADMISSION DIAGNOSIS: Infected penile prosthesis. DISCHARGE DIAGNOSES: 1. Infected penile prosthesis. 2. Fossa navicularis stricture. 3. Hypertension. 4. Hyperlipidemia. HOSPITAL COURSE: The patient has been dealing with an infected penile prosthesis for which we had planned removal and replacement in April. However, this acutely worsened with active drainage and so I advised that he present to the hospital. He was admitted and maintained on IV antibiotics for 2 days in preparation for removal of the prosthesis. He underwent removal on April 19, 2019. At that time, I found him to have a fossa navicularis stricture, which was dilated. Cystoscopy showed no further urethral or bladder abnormalities. The prosthesis was removed successfully and he was maintained with a drain and Alcantar catheter overnight. The morning of April 20, he reported no discomfort, no fevers, no nausea. His dressing, catheter, and drain were removed. His wound appeared healthy with no erythema or crepitus. The morning of the , the patient was having no pain, tolerating oral intake, and stable for discharge home. DISCHARGE MEDICATIONS: The patient will continue all of his home medications including the Bactrim, which he has been on for the infection. I will continue this for several days beyond the end of its course in 2 days. DISCHARGE INSTRUCTIONS: The patient will bathe in a bath twice a day. He will keep the wound clean and keep dry gauze over the drainage site. FOLLOWUP: The patient will follow up in my office in 2 to 3 weeks to begin using a vacuum device. Job ID: [id number]
== END 2019-04-20 11:50 | disposition home or self-care (01) | DRG 675 ==
LOC: SURG A 12:01
PROVIDERS: ADMIT Urology; ATTEND Urology
PROC: 0VPS0JZ Removal of Synthetic Substitute from Penis, Open Approach (ICD-10-PCS; principal; 2019-04-19)
PROC: 0TJB8ZZ Inspection of Bladder, Via Natural or Artificial Opening Endoscopic (ICD-10-PCS; 2019-04-19)
DX: T83.61XA Infection and inflammatory reaction due to implanted penile prosthesis, initial encounter (principal); Y83.8 Other surgical procedures as the cause of abnormal reaction of the patient, or of later complication, without mention of misadventure at the time of the procedure; I10 Essential (primary) hypertension; E78.5 Hyperlipidemia, unspecified; Z90.49 Acquired absence of other specified parts of digestive tract; Z90.79 Acquired absence of other genital organ(s)
CPT/HCPCS: 36415; 80048; 81001; 85025; 85610; 85730; 87070; 87077; 87086; 87186; 87205; 88300; J0690; J1580; J1650; J1885; J2001; J2405; J2704; J3010; J3370; J3490

== ENCOUNTER 2019-08-27 06:50 | Observation (INO) | payer MEDICARE, OTHER ==
[2019-08-27] MEDS ORDERED: CEFAZOLIN 2 GM in Premix Bag 1 BAG IVPB SCH (07:45)
[2019-08-27] MEDS ORDERED: Gentamicin Sulfate 240 MG in Sodium Chloride 0.9% 100 ML IVPB SCH (07:45)
[2019-08-27] MEDS ORDERED: Fentanyl 100 MCG/2 ML VIAL ONE (08:49)
[2019-08-27] MEDS ORDERED: Lidocaine 2% Jelly 5 ML TUBE ONE (08:49)
[2019-08-27] MEDS ORDERED: Bupivacaine 0.25% HCL 30 ML VIAL ONE (08:55)
[2019-08-27] MEDS ORDERED: Bacitracin Zinc Ointment 30 gm TUBE ONE (08:55)
[2019-08-27] MEDS ORDERED: Promethazine HCl 25 MG/ML VIAL SLOW IVP PRN (11:31)
[2019-08-27] MEDS ORDERED: Promethazine HCl 25 MG/ML VIAL IM PRN (11:31)
[2019-08-27] MEDS ORDERED: Ondansetron HCl/PF 4 MG/2 ML Vial IVP PRN (11:31)
[2019-08-27] MEDS ORDERED: Morphine 4 MG/ML VIAL SLOW IVP PRN (11:45)
[2019-08-27] MEDS ORDERED: diphenhydrAMINE 50 MG/ML VIAL IVP PRN (11:45)
[2019-08-27] MEDS ORDERED: HYDROcodone/Acetaminophen 5/325 mg Tablet PO PRN (11:45)
[2019-08-27] MEDS ORDERED: Zolpidem Tartrate 5 MG TAB PO PRN (11:45)
[2019-08-27] MEDS ORDERED: hydrALAZINE 20 MG/ML VIAL SLOW IVP PRN (11:45)
[2019-08-27] MEDS ORDERED: Mag-Al 1200 mg/1200 mg/30 ML UDCUP PO PRN (11:45)
[2019-08-27] MEDS ORDERED: Promethazine 25 MG TAB PO PRN (11:45)
[2019-08-27] MEDS ORDERED: Ketorolac Tromethamine 30 MG/ML VIAL IVP SCH (12:00)
[2019-08-27] MEDS ORDERED: hydrALAZINE 20 MG/ML VIAL ONE (12:22)
[2019-08-27] MEDS ORDERED: Ondansetron PF 4 MG/2 ML Vial ONE (12:34)
[2019-08-27] MEDS ORDERED: EPHEDRINE 25 MG/5 ML SYRINGE ONE (12:34)
[2019-08-27] MEDS ORDERED: Rocuronium Bromide 10 MG/ML (10ML VIAL) ONE (12:34)
[2019-08-27] MEDS ORDERED: Glycopyrrolate 0.2 MG/ML 5 ML SYRINGE ONE (12:34)
[2019-08-27] MEDS ORDERED: Lidocaine 1% PF 5 ML VIAL ONE (12:34)
[2019-08-27] MEDS ORDERED: PROPOFOL 200 MG/20 ML VIAL ONE (12:34)
[2019-08-27] MEDS: Sodium Chloride 0.9% 1,000 ML IV SCH ×2 (14:45→20:14)
[2019-08-27] MEDS: Ketorolac Tromethamine 30 MG/ML VIAL IVP SCH ×2 (14:51→20:15)
[2019-08-27 15:04] VITALS: BMI 26.7
[2019-08-27] MEDS ORDERED: CEFAZOLIN 2 GM in Sodium Chloride 0.9% 100 ML IVPB SCH (16:00)
--- NOTE | 2019-08-27 18:43 | OP ---
DATE OF PROCEDURE: 08/27/2019 PREOPERATIVE DIAGNOSIS: Erectile dysfunction due to arterial insufficiency. POSTOPERATIVE DIAGNOSIS: Erectile dysfunction due to arterial insufficiency. PROCEDURES PERFORMED: Placement of three-piece penile prosthesis. ANESTHESIA: General. COMPLICATIONS: None. BLOOD LOSS: 100 mL. DESCRIPTION OF PROCEDURE: After informed consent, the patient was taken to the operating room, transferred to the table. Anesthesia was established. A time-out was performed showing the correct patient, site, and procedure. Preoperative antibiotics were administered. He was carefully prepped and draped in the supine position. I began by placing a 16-Martiniquais Alcantar catheter, which easily passed through his prior fossa navicularis stricture. 10 mL were instilled in the balloon. A Trauma Pouch was deployed over the penis. I began by making a transverse scrotal incision and carefully dissected down through dartos fascia. There was significant scarring from the incision down to the corpora. I was able to carefully dissect the urethra and from there, dissected each corpora individually. He does have extensive scarring of the prior corporotomies. I began by first making a corporotomy on the left side slightly proximal to the prior corporotomy. I was then able to incise through the previous corporotomy site. I was able to dissect with Metzenbaum scissors distally and proximally and then dilated with Case dilators from 8-Martiniquais to 13-Martiniquais distally and 8-14 proximally. This was measured and found to be 9 distal and 12 proximal. The same procedure was repeated on the right side with similar measurements. A 21 cm CX prosthesis was selected and prepared. I carefully dissected into the space of Retzius on the right side, where I encountered a previously placed reservoir, which was removed and passed off. The space of Retzius was irrigated and the new 100 mL reservoir was placed here. It was filled with 100 mL. The cylinders were then placed after placing corporotomy sutures. Once they were deemed to be in good position distally and proximally, the corporotomy sutures were tied down. The pump and reservoir were then connected and the prosthesis cycled noting excellent inflation and placement. There was no evidence of aneurysm of the cylinder through the corporotomy site. The prosthesis was then deflated. The bulb was placed into the scrotum after passing a 10-Martiniquais drain through the dependent portion of the scrotum with the proximal tip into the space of Retzius. Copious irrigation was used throughout the procedure, especially at the end. I then closed in 2 layers, finally closing dartos separately. Skin was then closed with interrupted chromic sutures. The wound was dressed with antibiotic ointment, 4x4s, and tape. The catheter was left at the end of the procedure. He was then awoken from anesthesia, transferred back to his hospital bed, and taken to PACU in stable condition, where he will be admitted to the floor overnight. Job ID: [id number]
[2019-08-27] MEDS: Docusate 100 MG CAP PO SCH (20:14)
[2019-08-27] MEDS: Famotidine/PF 20 mg/2ml Vial SLOW IVP SCH (20:15)
[2019-08-27] MEDS ORDERED: Terazosin HCl 5 MG CAP PO SCH (21:00)
[2019-08-27] MEDS ORDERED: Aspirin 81 mg Enteric Coated Tablet PO SCH (21:00)
[2019-08-27] MEDS ORDERED: Atorvastatin Calcium 40 MG TAB PO SCH (21:00)
[2019-08-28] MEDS: CEFAZOLIN 2 GM in Premix Bag 1 BAG IVPB SCH ×2 (00:01→08:38)
[2019-08-28] MEDS: Ketorolac Tromethamine 30 MG/ML VIAL IVP SCH ×2 (03:55→08:38)
[2019-08-28 07:59] VITALS: BP 166/75; TEMP 98.1
[2019-08-28] MEDS: Docusate 100 MG CAP PO SCH (08:38)
[2019-08-28] MEDS: Famotidine/PF 20 mg/2ml Vial SLOW IVP SCH (08:38)
--- NOTE | 2019-08-28 08:42 | DIS ---
DATE OF ADMISSION: 08/27/2019 DATE OF DISCHARGE: 08/28/2019 CHIEF COMPLAINT: Erectile dysfunction. PROCEDURE PERFORMED: Placement of three-piece penile prosthesis. HOSPITAL COURSE: The patient underwent a redo placement of three-piece penile prosthesis through a previously infected field. There were no complications. He was observed overnight with IV pain control. The following morning, his dressing, drain and catheter were removed. The implant was in good position with no evidence of infection. He was tolerating oral diet and controlling pain with only oral medications. He was deemed stable for discharge home at this point. FOLLOWUP: Follow up plan six weeks. ACTIVITY: Light nonstressful activities. DIET: Regular diet. DISCHARGE MEDICATIONS: Continue all home medications, postop medications include [place], docusate, Bactrim, naproxen. Job ID: [id number]
== END 2019-08-28 09:30 | disposition home or self-care (01) ==
LOC: SDC 06:50 → ONC 13:13
PROVIDERS: ADMIT Urology; ATTEND Urology
PROC: 0VW Male Reproductive System, Revision (ICD-10-PCS; principal; 2019-08-27)
DX: N52.01 Erectile dysfunction due to arterial insufficiency (principal); I10 Essential (primary) hypertension; E78.5 Hyperlipidemia, unspecified; D64.9 Anemia, unspecified; Z79.899 Other long term (current) drug therapy; Z88.1 Allergy status to other antibiotic agents; Z88.8 Allergy status to other drugs, medicaments and biological substances
CPT/HCPCS: 54408; 96361 ×2; 96365; 96366; 96375; 96376 ×2; G0378 ×2; J0360; J0690; J1580; J1885; J2001; J2405; J2704; J3010; J3490; S0020; S0028

== ENCOUNTER 2021-07-20 12:58 | Outpatient (CLI) | payer MEDICARE, OTHER ==
[2021-07-20 14:16] LABS: Bilirubin Neg (Negative); Blood, Urine 25 (Negative); Glucose, Urine (Dipstick) Normal (Negative); Ketone, Urine Negative (Negative); Leukocyte 25 (Negative); Nitrite Negative (Negative); Protein, Urine (Dipstick) 15 mg/dl (Neg-Trace); Urobilinogen Normal mg/dL (Less than 2)
[2021-07-20 14:17] LABS: Mean Corpuscular HGB CONC 31.1 g/dL (32.0-36.0); Mean Corpuscular Hemoglobin 26.3 pg (27.0-33.0); Mean Corpuscular Volume 84.4 fl (81.2-95.1); Mean Platelet Volume 8.8 fl (7.4-10.4); Platelet Count 151 10x3/uL (150-450); RBC Distribution Width 16.1 % (11.5-14.5); Red Blood Cell (RBC) Count 4.95 10x6/uL (4.32-5.72); White Blood Cell (WBC) Count 8.2 10x3/uL (3.5-10.5)
[2021-07-20 14:20] LABS: Clarity Clear (Clear)
[2021-07-20 14:25] LABS: Bacteria/HPF Rare-Few HPF (None Seen); RBC/HPF Greater than 50 HPF (0-3); Squamous Epithelial 21-50 HPF (0-3)
[2021-07-20 14:35] LABS: Anion Gap 15 mmol/L (10-20); BUN (Urea Nitrogen) 16 mg/dL (8.4-25.7); Calc. Creatinine Clearance 0 mL/min (70-130); Calcium 8.9 mg/dL (7.8-10.44); Carbon Dioxide 24 mmol/L (23-31); Chloride 107 mmol/L (98-107); Glucose 98 mg/dL (83-110); Potassium 3.9 mmol/L (3.5-5.1); Sodium 142 mmol/L (136-145)
[2021-07-21 00:25] LABS: SARS-CoV-2 PCR by NAA Not Detected (NotDetected)
== END 2021-07-20 12:59 | disposition home or self-care (01) ==
LOC: LABBT 12:58
PROVIDERS: ATTEND Urology
DX: Z01.818 Encounter for other preprocedural examination (principal); Q54.9 Hypospadias, unspecified; Z20.822 Contact with and (suspected) exposure to COVID-19
CPT/HCPCS: 80048; 81001; 85027; 87086; 93005; U0003; U0005; 93010

== ENCOUNTER 2021-07-23 06:40 | Day surgery (SDC) | payer MEDICARE, OTHER ==
[2021-07-21 12:17] VITALS: BMI 25.0
[2021-07-23] MEDS ORDERED: fentaNYL Citrate/PF 100 MCG/2 ML SYRINGE ONE (09:23)
[2021-07-23] MEDS ORDERED: Bupivacaine 0.25% 10 ML VIAL ONE (09:26)
[2021-07-23] MEDS ORDERED: ceFAZolin (BATCH) 2 GM/100 ML BAG ONE (09:41)
[2021-07-23] MEDS ORDERED: Dexamethasone 20 MG/5 ML VIAL ONE (09:49)
[2021-07-23] MEDS ORDERED: Lidocaine 1% PF 5 ML VIAL ONE (09:49)
[2021-07-23] MEDS ORDERED: Ondansetron PF 4 MG/2 ML Vial ONE (09:49)
[2021-07-23] MEDS ORDERED: PROPOFOL 200 MG/20 ML VIAL ONE (09:49)
[2021-07-23] MEDS ORDERED: ePHEDrine 50 MG/ML VIAL ONE (09:49)
[2021-07-23] MEDS ORDERED: hydrALAZINE 20 MG/ML VIAL ONE (11:36)
== END 2021-07-23 13:24 | disposition home or self-care (01) ==
LOC: SDC 06:40
PROVIDERS: ATTEND Urology
PROC: 0TSD0ZZ Reposition Urethra, Open Approach (ICD-10-PCS; principal; 2021-07-23)
DX: Q54.9 Hypospadias, unspecified (principal); E78.5 Hyperlipidemia, unspecified; I10 Essential (primary) hypertension; Z79.82 Long term (current) use of aspirin; Z79.899 Other long term (current) drug therapy; Z88.1 Allergy status to other antibiotic agents; Z88.8 Allergy status to other drugs, medicaments and biological substances; Z95.1 Presence of aortocoronary bypass graft
CPT/HCPCS: J0360; J0690; J1100; J2405; J2704; J3490; S0020

== ENCOUNTER 2022-04-20 12:08 | Outpatient (CLI) | payer OTHER | END 2022-04-20 12:09 | disposition home or self-care (01) | LOC: ULT 12:08 | PROVIDERS: ATTEND Chiropractor | DX: I25.9 Chronic ischemic heart disease, unspecified (principal); I07.1 Rheumatic tricuspid insufficiency; I37.1 Nonrheumatic pulmonary valve insufficiency | CPT/HCPCS: 93306 ==